=== PATIENT | male | born 2000 | race Caucasian/White ===

== ENCOUNTER 2022-01-25 19:34 | Emergency (ER) | payer BC ==
[2022-01-25] MEDS ORDERED: Ketorolac Tromethamine 30 MG/ML VIAL ONE (20:36)
[2022-01-25] MEDS ORDERED: Dexamethasone 10 MG/ML VIAL ONE (20:36)
== END 2022-01-25 20:50 | disposition home or self-care (01) ==
LOC: BURERS 19:34
DX: M54.50 Low back pain, unspecified (principal); X50.1XXA Overexertion from prolonged static or awkward postures, initial encounter
CPT/HCPCS: 96372; 99283; J1100; J1885